=== PATIENT | female | born 1995 | race Caucasian/White ===

== ENCOUNTER 2017-06-09 00:19 | Emergency (ER) | payer OTHER ==
--- NOTE | 2017-06-09 00:22 | EDPHY ---
H & P HPI/ROS: HPI CHIEF COMPLAINT: Depression, suicidal ideation, alcohol intoxication, anxiety HISTORY OF PRESENT ILLNESS: This patient is a very pleasant 21-year-old female significant past medical history depression anxiety, she reports tonight she is feeling suicidal with no specific plan she presents emergency room by private vehicle on her own will. She states that she woke up with her boyfriend siena and has been drinking at a beer festival in [place]. She states that she has not drunk but had 6-8 beers. She presents emergency room smelling of alcohol tearful and anxious. 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 She is voluntary. Past Medical History: Depression and anxiety Past Surgical History: Denies recent surgery Social History: Alcohol use tonight, denies illicit drugs, intermittent marijuana use, denies tobacco. Family History: Noncontributory ROS REVIEW OF SYSTEMS: A comprehensive 10 point review of systems is otherwise negative aside from elements mentioned in the history of present illness. Exam Constitutional anxious, tearful, smells of alcohol, triage nursing summary reviewed, vital signs reviewed, awake/alert. Eyes normal conjunctivae and sclera, EOMI, PERRLA. HENT normal inspection, atraumatic, moist mucus membranes, no epistaxis, neck supple/ no meningismus, no raccoon eyes. Respiratory clear to auscultation bilaterally, normal breath sounds, no respiratory distress, no wheezing. Cardiovascular rate normal, regular rhythm, no murmur, no edema, distal pulses normal. Gastrointestinal soft, non-tender, no rebound, no guarding, normal bowel sounds, no distension, no pulsatile mass. Genitourinary no CVA tenderness. Musculoskeletal no midline vertebral tenderness, full range of motion, no calf swelling, no tenderness of extremities, no meningismus, good pulses, neurovascularly intact. Skin pink, warm, & dry, no rash, skin atraumatic. Neurologic awake, alert and oriented x 3, AAOx3, moves all 4 extremities equally, motor intact, sensory intact, CN II-XII intact, normal cerebellar, normal vision, normal speech. Psychiatric anxious, tearful Heme/Lymph/Immune no lymphadenopathy. Differential Diagnosis: Includes but is not limited to in a particular order acute anxiety, acute alcohol intoxication, depression, suicidal ideation. Medical Decision Making: Plan for this patient blood draw including alcohol lateral for medical clearance. And then mental health evaluation. 1 mg p.o. Ativan for anxiety. Re-evaluation: 0618: Patient been evaluated by mental health as well as consult with psychiatry Dr. Mccarty. Patient is not suicidal. She is now sober. She denies wanting to hurt herself or anybody else. Denies being suicidal. States she got upset about her relationship and was intoxicated. I did go and speak with this patient again. She is resting comfortably she denies want hurt herself or anybody else. I will allow her to go home. Mom is to pick her up. We did give her mental health resources. Additionally she understands to return to the emergency room if she has any worsening symptoms questions or concerns includes feeling she is going to harm herself or somebody else suicidal ideation. She has been given mental health outpatient resources as well. Source: Patient - Medical/Surgical History Hx Asthma: No Hx Chronic Respiratory Disease: No Hx Diabetes: No Hx Cardiac Disease: No Hx Renal Disease: No Hx Cirrhosis: No Hx Alcoholism: No Hx HIV/AIDS: No Hx Splenectomy or Spleen Trauma: No Other PMH: PMH: ANXIETY,PANIC D/O. PSH: WISDOM TEETH - Social History Smoking Status: Never smoked Constitutional: Initial Vital Signs Temperature (C) 37 C 06/09/17 00:21 Heart Rate 107 H 06/09/17 00:21 Respiratory Rate 22 H 06/09/17 00:21 Blood Pressure 133/93 H 06/09/17 00:21 O2 Sat (%) 98 06/09/17 00:21 O2 Delivery Mode Room Air Allergies/Adverse Reactions: fentanyl Allergy (Verified 06/09/17 00:21) Home Medications: Medication Instructions Recorded Depo Inj Unk Dose 03/15/14 Ativan 06/09/17 Lexapro 06/09/17 Medical Decision Making - Data Points Laboratory Results: Laboratory Results 06/09/17 00:45 06/09/17 00:45 06/09/17 06/09/17 06/09/17 00:45 00:45 00:45 WBC 10.63 10^3/uL H 10^3/uL (3.80-9.50) RBC 4.67 10^6/uL 10^6/uL (4.18-5.33) Hgb 14.4 g/dL g/dL (12.6-16.3) Hct 41.6 % % (38.0-47.0) MCV 89.1 fL fL (81.5-99.8) MCH 30.8 pg pg (27.9-34.1) MCHC 34.6 g/dL g/dL (32.4-36.7) RDW 12.3 % % (11.5-15.2) Plt Count 365 10^3/uL 10^3/uL (150-400) MPV 8.6 fL L fL (8.7-11.7) Neut % (Auto) 55.4 % % (39.3-74.2) Lymph % (Auto) 37.4 % % (15.0-45.0) Marathon % (Auto) 5.3 % % (4.5-13.0) Eos % (Auto) 1.0 % % (0.6-7.6) Baso % (Auto) 0.6 % % (0.3-1.7) Nucleat RBC Rel Count 0.0 % % (0.0-0.2) Absolute Neuts (auto) 5.89 10^3/uL 10^3/uL (1.70-6.50) Absolute Lymphs (auto) 3.98 10^3/uL H 10^3/uL (1.00-3.00) Absolute Monos (auto) 0.56 10^3/uL 10^3/uL (0.30-0.80) Absolute Eos (auto) 0.11 10^3/uL 10^3/uL (0.03-0.40) Absolute Basos (auto) 0.06 10^3/uL 10^3/uL (0.02-0.10) Absolute Nucleated RBC 0.00 10^3/uL 10^3/uL (0-0.01) Immature Gran % 0.3 % % (0.0-1.1) Immature Gran # 0.03 10^3/uL 10^3/uL (0.00-0.10) Sodium 148 mEq/L H mEq/L (134-144) Potassium 4.0 mEq/L mEq/L (3.5-5.2) Chloride 106 mEq/L mEq/L (97-110) Carbon Dioxide 22 mEq/l mEq/l (22-31) Anion Gap 20 mEq/L H mEq/L (8-16) BUN 8 mg/dL mg/dL (7-23) Creatinine 0.7 mg/dL mg/dL (0.6-1.0) Estimated GFR > 60 Glucose 89 mg/dL mg/dL (70-100) Calcium 9.6 mg/dL mg/dL (8.5-10.4) Beta HCG, Qual NEGATIVE Urine Opiates Screen Urine Barbiturates Ur Phencyclidine Scrn Ur Amphetamine Screen U Benzodiazepines Scrn Urine Cocaine Screen U Marijuana (THC) Screen Ethyl Alcohol 120 mg/dL H mg/dL (0-10) 06/09/17 00:39 WBC RBC Hgb Hct MCV MCH MCHC RDW Plt Count MPV Neut % (Auto) Lymph % (Auto) Marathon % (Auto) Eos % (Auto) Baso % (Auto) Nucleat RBC Rel Count Absolute Neuts (auto) Absolute Lymphs (auto) Absolute Monos (auto) Absolute Eos (auto) Absolute Basos (auto) Absolute Nucleated RBC Immature Gran % Immature Gran # Sodium Potassium Chloride Carbon Dioxide Anion Gap BUN Creatinine Estimated GFR Glucose Calcium Beta HCG, Qual Urine Opiates Screen NEGATIVE (NEGATIVE) Urine Barbiturates NEGATIVE (NEGATIVE) Ur Phencyclidine Scrn NEGATIVE (NEGATIVE) Ur Amphetamine Screen NEGATIVE (NEGATIVE) U Benzodiazepines Scrn NEGATIVE (NEGATIVE) Urine Cocaine Screen NEGATIVE (NEGATIVE) U Marijuana (THC) Screen NEGATIVE (NEGATIVE) Ethyl Alcohol Medications Given: Discontinued Medications Lorazepam (Ativan) 1 mg PO ONCE ONE Stop: 06/09/17 00:37 Last Admin: 06/09/17 00:43 Dose: 1 mg Departure - Departure Disposition: Home, Routine, Self-Care Clinical Impression: Anxiety Alcohol intoxication Qualifiers: Complication of substance-induced condition: uncomplicated Qualified Code(s): F10.920 - Alcohol use, unspecified with intoxication, uncomplicated Condition: Good Instructions: Alcohol Intoxication (ED), Anxiety (ED) Additional Instructions: 1.Return emergency room if develops any worsening symptoms includes suicidal ideation wanting to harm herself or anybody else. Feeling depressed. Return emergency room. Referrals: Jaelyn Horn MD [Primary Care Provider] - As per Instructions
[2017-06-09 00:25] VITALS: O2SAT 98
[2017-06-09] MEDS ORDERED: LORazepam 1 MG TAB PO ONE (00:36)
[2017-06-09 00:55] LABS: % IMMATURE GRANULYOCYTES 0.3 % (0.0-1.1); ABSOLUTE IMMATURE GRANULOCYTES 0.03 10^3/uL (0.00-0.10); ADD DIFF? NO; ADD MORPH? NO; ADD SCAN? NO; ATYPICAL LYMPHOCYTE FLAG 0 (0-99); FRAGMENT RBC FLAG 0 (0-99); HEMATOCRIT 41.6 % (38.0-47.0); HEMOGLOBIN 14.4 g/dL (12.6-16.3); LEFT SHIFT FLG 0 (0-99); LIPEMIA HEMOLYSIS FLAG 90 (0-99); MEAN CELL HEMOGLOBIN 30.8 pg (27.9-34.1); MEAN CELL HEMOGLOBIN CONCENTR. 34.6 g/dL (32.4-36.7); MEAN CELL VOLUME 89.1 fL (81.5-99.8); MEAN PLATELET VOLUME 8.6 fL (8.7-11.7); PLATELET CLUMPS FLAG 10 (0-99); PLATELET COUNT 365 10^3/uL (150-400); RED BLOOD CELL COUNT 4.67 10^6/uL (4.18-5.33); RED CELL DISTRIBUTION WIDTH 12.3 % (11.5-15.2)
[2017-06-09 01:08] LABS: ANION GAP 20 mEq/L (8-16); CALCIUM 9.6 mg/dL (8.5-10.4); CARBON DIOXIDE 22 mEq/l (22-31); CHLORIDE 106 mEq/L (97-110); CREATININE 0.7 mg/dL (0.6-1.0); ETHANOL SERUM 120 mg/dL (0-10); GLOMERULAR FILTRATION RATE > 60; GLUCOSE 89 mg/dL (70-100); SODIUM 148 mEq/L (134-144)
[2017-06-09 04:04] VITALS: RESP 16; TEMP 98.1
[2017-06-09 06:24] VITALS: BP 128/68; PULSE 102
== END 2017-06-09 06:24 | disposition home or self-care (01) ==
DX: F10.920 Alcohol use, unspecified with intoxication, uncomplicated (principal); F41.9 Anxiety disorder, unspecified
CPT/HCPCS: 80305; G0480